=== PATIENT | female | born 1985 | race African-American/Black ===

== ENCOUNTER 2017-03-26 17:25 | Emergency (ER) | payer SELFPAY ==
[~2017-03-26] VITALS: Ht 154.9 cm; Wt 61.0 kg
[~2017-03-26 17:25] MED LIST: PREN1TAB52 PO
[2017-03-26 20:05] LABS: APPEARANCE,URINE CLEAR (CLEAR); GLUCOSE, URINE (UA) NEGATIVE (NEGATIVE); KETONES,URINE NEGATIVE (NEGATIVE); LEUKOCYTE ESTERASE ,URINE NEGATIVE (NEGATIVE); OCCULT BLOOD,URINE NEGATIVE (NEGATIVE); PH,URINE 6.5 (5.0-8.0); PROTEIN,URINE NEGATIVE (NEGATIVE)
[2017-03-26 20:11] LABS: ADD UA MICROSCOPIC NO
[2017-03-26 20:29] VITALS: BP 119/76
== END 2017-03-26 20:32 | disposition left against medical advice (07) ==
LOC: EMS 17:26
DX: O26.891 Other specified pregnancy related conditions, first trimester (principal); R10.30 Lower abdominal pain, unspecified; Z3A.01 Less than 8 weeks gestation of pregnancy
CPT/HCPCS: 76801; 76817; 99285

== ENCOUNTER 2017-03-30 12:52 | Emergency (ER) | payer MEDICAID ==
[~2017-03-30] VITALS: Ht 154.9 cm; Wt 61.0 kg
[2017-03-30 14:22] LABS: BASOPHILS # (AUTO) 0.05 K/uL (0.00-0.20); BASOPHILS % (AUTO) 0.6 % (0.0-2.0); EOSINOPHILS # (AUTO) 0.05 K/uL (0.00-0.70); EOSINOPHILS % (AUTO) 0.62 % (1.0-6.0); HEMATOCRIT 37.2 % (36-46); HEMOGLOBIN 11.6 g/dL (12.0-16.0); LYMPHOCYTES # (AUTO) 2.4 K/uL (1.0-4.8); LYMPHOCYTES % (AUTO) 32.3 % (22.0-44.0); MEAN CORPUSCULAR HEMOGLOBIN 26.3 pg (26.0-34.0); MEAN CORPUSCULAR HGB CONC 31.1 G/dL (31.0-37.0); MEAN CORPUSCULAR VOLUME 84 fL (80-100); MONOCYTES # (AUTO) 0.4 K/uL (0.1-1.0); MONOCYTES % (AUTO) 5.6 % (2.0-9.0); NEUTROPHILS # (AUTO) 4.6 K/uL (1.8-7.7); NEUTROPHILS % (AUTO) 60.9 % (40.0-70.0); PLATELET COUNT (AUTO) 389 K/uL (150-450); RED BLOOD CELL COUNT(AUTO) 4.41 MIL/uL (4.00-5.20); RED CELL DISTRIBUTION WIDTH 14.9 % (11.5-14.5); WHITE BLOOD COUNT (AUTO) 7.6 K/uL (4.5-11.0)
[2017-03-30 16:15] VITALS: BP 107/72
== END 2017-03-30 16:42 | disposition home or self-care (01) ==
LOC: EMS 12:56
DX: O03.9 Complete or unspecified spontaneous abortion without complication (principal); Z3A.01 Less than 8 weeks gestation of pregnancy
CPT/HCPCS: 76801; 76817; 86901; 99285

== ENCOUNTER 2017-04-10 13:26 | Emergency (ER) | payer MEDICAID ==
[~2017-04-10] VITALS: Ht 154.9 cm; Wt 61.2 kg
[2017-04-10] MEDS ORDERED: ACETAMINOPHEN 500 MG TABLET PO ONE (14:00)
[2017-04-10 14:25] LABS: INFLUENZA TYPE B NEGATIVE FOR TYPE B (NEGATIVE)
[2017-04-10 17:34] VITALS: BP 110/69
== END 2017-04-10 17:46 | disposition home or self-care (01) ==
LOC: EMS 13:27
DX: J06.9 Acute upper respiratory infection, unspecified (principal); M79.1 Myalgia
CPT/HCPCS: 87804; 99284

== ENCOUNTER 2018-09-07 07:05 | Emergency (ER) | payer MEDICAID ==
[~2018-09-07] VITALS: Ht 154.9 cm; Wt 65.9 kg
[2018-09-07] MEDS ORDERED: LORazepam 2 MG/ML VIAL IVP ONE (08:45)
[2018-09-07] MEDS ORDERED: SODIUM CHLORIDE 0.9% 2,000 ML IV ONE (08:45)
[2018-09-07] MEDS ORDERED: LORazepam 1 MG TABLET PO ONE (08:45)
[2018-09-07 08:59] LABS: AMPHET/METH SCREEN,URINE POSITIVE (NEGATIVE); BARBITURATE SCREEN, URINE NEGATIVE (NEGATIVE); BENZODIAZEPINES SCREEN,URINE POSITIVE (NEGATIVE); CANNABINOID SCREEN,URINE POSITIVE (NEGATIVE); COCAINE SCREEN,URINE POSITIVE (NEGATIVE); METHADONE SCREEN, URINE POSITIVE (NEGATIVE); OPIATE SCREEN,URINE POSITIVE (NEGATIVE)
[2018-09-07 09:19] LABS: PHENCYCLIDINE SCREEN,URINE NEGATIVE (NEGATIVE)
[2018-09-07 09:38] VITALS: BP 130/78
== END 2018-09-07 09:39 | disposition home or self-care (01) ==
LOC: EMS 07:07
DX: F11.20 Opioid dependence, uncomplicated (principal); F19.10 Other psychoactive substance abuse, uncomplicated

== ENCOUNTER 2019-04-23 23:05 | Emergency (ER) | payer MEDICAID ==
[~2019-04-23] VITALS: Ht 154.9 cm; Wt 59.1 kg
[2019-04-24] MEDS ORDERED: PERTUSS(ACELL),DIPH,TET VAC/PF 0.5 ML VIAL IM ONE (02:30)
[2019-04-24] MEDS ORDERED: LIDOCAINE 1% 10 ML VIAL INJ ONE (02:30)
[2019-04-24 03:44] VITALS: BP 130/80
== END 2019-04-24 03:45 | disposition home or self-care (01) ==
LOC: EMS 23:05
DX: S81.812A Laceration without foreign body, left lower leg, initial encounter (principal); W25.XXXA Contact with sharp glass, initial encounter; Y93.89 Activity, other specified; Y92.89 Other specified places as the place of occurrence of the external cause; Y99.8 Other external cause status
CPT/HCPCS: 12002; 90471; 90715; 99283; J3490

== ENCOUNTER 2021-04-21 16:20 | Emergency (ER) | payer MEDICAID ==
[~2021-04-21] VITALS: Ht 154.9 cm; Wt 63.6 kg
[2021-04-21 16:33] VITALS: BP 96/85
== END 2021-04-21 18:01 | disposition left against medical advice (07) ==
LOC: EMS 16:20
DX: R11.0 Nausea (principal); Z53.21 Procedure and treatment not carried out due to patient leaving prior to being seen by health care provider

== ENCOUNTER 2021-06-28 16:54 | Emergency (ER) | payer MEDICAID ==
[~2021-06-28] VITALS: Ht 154.9 cm; Wt 62.0 kg
[2021-06-28 17:22] VITALS: BP 130/86
== END 2021-06-28 18:54 | disposition home or self-care (01) ==
LOC: EMS 16:58
DX: O26.891 Other specified pregnancy related conditions, first trimester (principal); R55 Syncope and collapse; R42 Dizziness and giddiness; Z3A.08 8 weeks gestation of pregnancy
CPT/HCPCS: 99283; Z7502

== ENCOUNTER 2021-06-30 13:30 | Emergency (ER) | payer MEDICAID ==
[~2021-06-30] VITALS: Ht 154.9 cm; Wt 59.6 kg
[2021-06-30 14:32] LABS: BASOPHILS % (AUTO) 0.4 % (0.0-2.0); EOSINOPHILS % (AUTO) 1.7 % (1.0-6.0); HEMATOCRIT 38.4 % (36-46); HEMOGLOBIN 12.2 g/dL (12.0-16.0); LYMPHOCYTES # (AUTO) 1.5 K/uL (1.0-4.8); LYMPHOCYTES % (AUTO) 11.9 % (22.0-44.0); MEAN CORPUSCULAR HEMOGLOBIN 25.6 pg (26.0-34.0); MEAN CORPUSCULAR HGB CONC 31.8 G/dL (31.0-37.0); MEAN CORPUSCULAR VOLUME 81 fL (80-100); MONOCYTES # (AUTO) 0.7 K/uL (0.1-1.0); MONOCYTES % (AUTO) 5.9 % (2.0-9.0); NEUTROPHILS # (AUTO) 9.9 K/uL (1.8-7.7); NEUTROPHILS % (AUTO) 80.1 % (40.0-70.0); PLATELET COUNT (AUTO) 338 K/uL (150-450); RED BLOOD CELL COUNT(AUTO) 4.77 MIL/uL (4.00-5.20); RED CELL DISTRIBUTION WIDTH 14.9 % (11.5-14.5)
[2021-06-30 14:41] LABS: ANION GAP 8 mmol/L (8-16); CALCIUM, TOTAL 8.9 mg/dL (8.8-10.5); CARBON DIOXIDE 26 mmol/L (22-29); CHLORIDE 101 mmol/L (98-107); CREATININE 0.61 mg/dL (0.60-1.30); GLOMERULAR FILTR. RATE CALC > 60 mL/min (>60); GLUCOSE,RANDOM 93 mg/dL (70-110); POTASSIUM 3.6 mmol/L (3.5-5.1); SODIUM SERUM 135 mmol/L (136-145); UREA NITROGEN, BLOOD 5 mg/dL (7-18)
[2021-06-30] MEDS ORDERED: SODIUM CHLORIDE 0.9% 1,000 ML IV ONE (15:00)
[2021-06-30] MEDS ORDERED: ONDANSETRON HCL 4 MG/2 ML VIAL IVP ONE (15:00)
[2021-06-30 15:03] LABS: APPEARANCE,URINE CLOUDY (CLEAR); BILIRUBIN,URINE NEGATIVE (NEGATIVE); GLUCOSE, URINE (UA) NEGATIVE (NEGATIVE); KETONES,URINE 15 mg/dL (NEGATIVE); LEUKOCYTE ESTERASE ,URINE SMALL (NEGATIVE); NITRATE,URINE NEGATIVE (NEGATIVE); OCCULT BLOOD,URINE LARGE (NEGATIVE); PH,URINE 7.5 (5.0-8.0); PROTEIN,URINE POS 1+ (NEGATIVE); UROBILINOGEN,URINE 0.2 mg/dL (<=1.0)
[2021-06-30 15:09] LABS: ALANINE AMINOTRANSFERASE 55 U/L (12-78); ALBUMIN 3.5 g/dL (3.4-5.0); ALKALINE PHOSPHATASE 51 U/L (46-116); ASPARTATE AMINOTRANSFERASE 33 U/L (15-37); BILIRUBIN,TOTAL 0.3 mg/dL (0.1-1.0); HCG,QUANTITATIVE 103754 mIU/mL (0-6); LIPASE 259 U/L (73-393); TOTAL PROTEIN, SERUM 7.2 g/dL (6.4-8.2)
[2021-06-30 15:10] LABS: SQUAMOUS EPITHELIAL CELL,UR Many /LPF (None Seen)
[2021-06-30 15:11] LABS: RBC,URINE >100 /HPF (0-2)
[2021-06-30 15:13] LABS: BACTERIA,URINE Few /HPF (None Seen)
[2021-06-30 15:35] VITALS: BP 107/78
[2021-06-30] MEDS ORDERED: ACETAMINOPHEN 325 MG TABLET PO ONE (15:45)
== END 2021-06-30 16:07 | disposition home or self-care (01) ==
LOC: EMS 13:30
DX: Z33.2 Encounter for elective termination of pregnancy (principal); O99.511 Diseases of the respiratory system complicating pregnancy, first trimester; U07.1 COVID-19; Z3A.09 9 weeks gestation of pregnancy
CPT/HCPCS: 36415; 76801; 76817; 80053; 81001; 83690; 84702; 85025; 86850; 86900; 86901; 87086; 96361; 96374; 99284; J2405; J7030

== ENCOUNTER 2021-09-05 21:16 | Emergency (ER) | payer MEDICAID ==
[~2021-09-05] VITALS: Ht 157.5 cm; Wt 59.1 kg
[2021-09-05] MEDS ORDERED: SODIUM CHLORIDE 0.9% 1,000 ML IV ONE ×2 (21:45→22:30)
[2021-09-05 21:46] LABS: EOSINOPHILS % (AUTO) 2.6 % (1.0-6.0); HEMATOCRIT 35.4 % (36-46); HEMOGLOBIN 11.1 g/dL (12.0-16.0); LYMPHOCYTES % (AUTO) 48.4 % (22.0-44.0); MEAN CORPUSCULAR HEMOGLOBIN 24.9 pg (26.0-34.0); MEAN CORPUSCULAR HGB CONC 31.4 G/dL (31.0-37.0); MEAN CORPUSCULAR VOLUME 79 fL (80-100); MONOCYTES # (AUTO) 1.3 K/uL (0.1-1.0); NEUTROPHILS # (AUTO) 4.7 K/uL (1.8-7.7); PLATELET COUNT (AUTO) 419 K/uL (150-450); RED BLOOD CELL COUNT(AUTO) 4.47 MIL/uL (4.00-5.20); RED CELL DISTRIBUTION WIDTH 14.2 % (11.5-14.5)
[2021-09-05 21:57] LABS: ANION GAP 6 mmol/L (8-16); CALCIUM, TOTAL 8.7 mg/dL (8.8-10.5); CARBON DIOXIDE 29 mmol/L (22-29); CHLORIDE 105 mmol/L (98-107); GLOMERULAR FILTR. RATE CALC > 60 mL/min (>60); GLUCOSE,RANDOM 142 mg/dL (70-110); POTASSIUM 3.2 mmol/L (3.5-5.1); SODIUM SERUM 140 mmol/L (136-145); UREA NITROGEN, BLOOD 15 mg/dL (7-18)
[2021-09-05 22:20] LABS: ALANINE AMINOTRANSFERASE 17 U/L (12-78); ALBUMIN 4.1 g/dL (3.4-5.0); ALKALINE PHOSPHATASE 59 U/L (46-116); ASPARTATE AMINOTRANSFERASE 15 U/L (15-37); BILIRUBIN,TOTAL 0.2 mg/dL (0.1-1.0); HCG,QUANTITATIVE 1 mIU/mL (0-6)
[2021-09-05] MEDS ORDERED: LORazepam 2 MG/ML VIAL IVP ONE (22:30)
[2021-09-05] MEDS ORDERED: POTASSIUM CHLORIDE 20 MEQ ER TABLET PO ONE (23:00)
[2021-09-05 23:36] LABS: AMPHET/METH SCREEN,URINE NEGATIVE (NEGATIVE); BARBITURATE SCREEN, URINE NEGATIVE (NEGATIVE); BENZODIAZEPINES SCREEN,URINE NEGATIVE (NEGATIVE); CANNABINOID SCREEN,URINE POSITIVE (NEGATIVE); COCAINE SCREEN,URINE POSITIVE (NEGATIVE); METHADONE SCREEN, URINE NEGATIVE (NEGATIVE); OPIATE SCREEN,URINE POSITIVE (NEGATIVE)
[2021-09-05 23:37] LABS: PHENCYCLIDINE SCREEN,URINE NEGATIVE (NEGATIVE)
[2021-09-06] VITALS: BP 163/120
== END 2021-09-06 00:20 | disposition home or self-care (01) ==
LOC: EMS 21:16
DX: R07.9 Chest pain, unspecified (principal); R00.2 Palpitations; F14.90 Cocaine use, unspecified, uncomplicated; F12.10 Cannabis abuse, uncomplicated
CPT/HCPCS: 80053; 84484; 84702; 85025; 93005; 96360; 96361; 99285; 36415-L1; 36415-TC

== ENCOUNTER 2021-12-25 14:53 | Emergency (ER) | payer MEDICAID ==
[~2021-12-25] VITALS: Ht 157.5 cm; Wt 61.4 kg
[2021-12-25] MEDS ORDERED: SODIUM CHLORIDE 0.9% 1,000 ML IV ONE (16:00)
[2021-12-25] MEDS ORDERED: ONDANSETRON HCL 4 MG/2 ML VIAL IVP ONE (16:00)
[2021-12-25 18:18] VITALS: BP 121/78
[2021-12-25] MEDS ORDERED: DOXY1TAB3 PO (18:21)
== END 2021-12-25 18:31 | disposition home or self-care (01) ==
LOC: EMS 14:53
DX: O21.9 Vomiting of pregnancy, unspecified (principal); Z3A.01 Less than 8 weeks gestation of pregnancy
CPT/HCPCS: 36415; 96361; 96374; 99283; J2405; J7030

== ENCOUNTER 2022-01-14 09:00 | Emergency (ER) | payer MEDICAID ==
[~2022-01-14] VITALS: Ht 162.6 cm; Wt 61.4 kg
[~2022-01-14 09:00] MED LIST changes: +DOXY1TAB3 PO; -PREN1TAB52 PO
[2022-01-14] MEDS ORDERED: SODIUM CHLORIDE 0.9% 1,000 ML IV ONE (09:30)
[2022-01-14] MEDS ORDERED: KETOROLAC TROMETHAMINE 30 MG/ML VIAL IVP ONE (09:30)
[2022-01-14] MEDS ORDERED: ONDANSETRON HCL 4 MG/2 ML VIAL IVP ONE (09:30)
[2022-01-14 10:12] LABS: BASOPHILS % (AUTO) 0.2 % (0.0-2.0); EOSINOPHILS % (AUTO) 0.5 % (1.0-6.0); HEMATOCRIT 27.1 % (36-46); HEMOGLOBIN 8.7 g/dL (12.0-16.0); LYMPHOCYTES # (AUTO) 1.1 K/uL (1.0-4.8); LYMPHOCYTES % (AUTO) 6.1 % (22.0-44.0); MEAN CORPUSCULAR HEMOGLOBIN 23.9 pg (26.0-34.0); MEAN CORPUSCULAR HGB CONC 32.1 G/dL (31.0-37.0); MEAN CORPUSCULAR VOLUME 74 fL (80-100); MONOCYTES # (AUTO) 1.2 K/uL (0.1-1.0); MONOCYTES % (AUTO) 6.6 % (2.0-9.0); NEUTROPHILS # (AUTO) 15.4 K/uL (1.8-7.7); RED BLOOD CELL COUNT(AUTO) 3.65 MIL/uL (4.00-5.20)
[2022-01-14 10:13] LABS: ANION GAP 9 mmol/L (8-16); CALCIUM, TOTAL 8.4 mg/dL (8.8-10.5); CARBON DIOXIDE 25 mmol/L (22-29); CHLORIDE 100 mmol/L (98-107); CREATININE 0.59 mg/dL (0.60-1.30); GLUCOSE,RANDOM 91 mg/dL (70-110); POTASSIUM 3.7 mmol/L (3.5-5.1); SODIUM SERUM 134 mmol/L (136-145); UREA NITROGEN, BLOOD 10 mg/dL (7-18)
[2022-01-14 10:17] LABS: NEUTROPHILS % (AUTO) 86.6 % (40.0-70.0)
[2022-01-14 10:18] LABS: GLOMERULAR FILTR. RATE CALC > 60 mL/min (>60)
[2022-01-14 10:30] VITALS: BP 96/63
[2022-01-14 10:30] LABS: PLATELET COUNT (AUTO) 301 K/uL (150-450)
[2022-01-14] MEDS ORDERED: CEPH-558 PO (11:38)
[2022-01-14] MEDS ORDERED: IBUP-1554 PO (11:38)
== END 2022-01-14 12:14 | disposition home or self-care (01) ==
LOC: EMS 09:03
DX: O03.9 Complete or unspecified spontaneous abortion without complication (principal); D64.9 Anemia, unspecified
CPT/HCPCS: 36415; 76801; 76817; 80048; 85025; 96361; 96374; 96375; 99284; J1885; J2405; J7030

== ENCOUNTER 2023-07-05 17:26 | Emergency (ER) | payer MEDICAID ==
[~2023-07-05] VITALS: Ht 157.5 cm; Wt 72.7 kg
[~2023-07-05 17:26] MED LIST changes: +CEPH-558 PO; +IBUP-1554 PO
[2023-07-05 17:29] VITALS: BP 127/77; PULSE 86; RESP 18; TEMP 98
[2023-07-05] MEDS ORDERED: IBUP-2077 PO (17:30)
[2023-07-05] MEDS ORDERED: AMOX500C2 PO (17:30)
[2023-07-05] MEDS ORDERED: HYDROCODONE/ACETAMINOPHEN 5-325 MG TABLET PO ONE (19:30)
== END 2023-07-05 20:00 | disposition home or self-care (01) ==
LOC: EMS 17:27
DX: K08.89 Other specified disorders of teeth and supporting structures (principal)
CPT/HCPCS: 99283; Z7502

== ENCOUNTER 2023-12-01 12:55 | Emergency (ER) | payer MEDICAID ==
[~2023-12-01] VITALS: Ht 157.5 cm; Wt 63.6 kg
[~2023-12-01 12:55] MED LIST changes: +AMOX500C2 PO; -CEPH-558 PO; -DOXY1TAB3 PO; -IBUP-1554 PO; +IBUP-2077 PO
[2023-12-01 13:11] VITALS: TEMP 97.8
[2023-12-01 14:41] VITALS: BP 112/69; PULSE 81; RESP 16
== END 2023-12-01 15:14 | disposition home or self-care (01) ==
LOC: EMS 12:56
DX: S63.502A Unspecified sprain of left wrist, initial encounter (principal); V89.2XXA Person injured in unspecified motor-vehicle accident, traffic, initial encounter; Y93.89 Activity, other specified; Y92.89 Other specified places as the place of occurrence of the external cause; Y99.8 Other external cause status
CPT/HCPCS: 99283